=== PATIENT | male | born 1995 | race Caucasian/White ===

== ENCOUNTER 2017-09-16 19:29 | Emergency (ER) | payer OTHER ==
[2017-09-16 19:40] VITALS: BP 153/95
--- NOTE | 2017-09-16 20:24 | ED Physician Documentation ---
PD HPI UPPER EXT INJURY - Stated complaint Stated Complaint: R THUMB INJ - Chief complaint Chief Complaint: Ext Problem - History obtained from History obtained from: Patient - History of Present Illness Location: Right, Finger (thumb) Type of injury: Twist (he was pushing hard with the thumb in hyperextended position and augmented the push with other hand pushing on top of the thumb. He felt an abrupt snap and pain in base of thumb. Pain with swelling.) Where injury occurred: Work Timing - onset: Today (just BRONZER) Timing - details: Abrupt onset, Still present Worsened by: Moving, Palpating Associated symptoms: Swelling. No: Weakness, Numbness Similar symptoms before: Has not had sx before Recently seen: Not recently seen Review of Systems Skin: denies: Abrasion (s), Laceration (s) Neurologic: denies: Focal weakness (but hurts with flex/extension at MCP.), Numbness PD PAST MEDICAL HISTORY - Past Medical History Musculoskeletal: None - Past Surgical History Past Surgical History: No - Present Medications Home Medications: Ambulatory Orders Medication Instructions Recorded Confirmed No Known Home Medications [No 09/16/17 09/16/17 Known Home Medications] - Allergies Allergies/Adverse Reactions: Allergies Allergy/AdvReac Type Severity Reaction Status Date / Time No Known Drug Allergies Allergy Verified 09/16/17 19:36 - Social History Does the pt smoke?: Yes Smoking Status: Current every day smoker Does the pt drink ETOH?: Yes Does the pt have substance abuse?: No - Immunizations Immunizations are current?: Yes - POLST Patient has POLST: No PD ED PE NORMAL - Vitals Vital signs reviewed: Yes - General General: Alert and oriented X 3, No acute distress, Well developed/nourished - Derm Derm: Normal color, Warm and dry - Extremities Extremities: Other (right thumb with swelling and tenderness at MCP radial side. With sightly offset angle appearance of the proximal phalanx at the MCP. ) - Neuro Neuro: No motor deficit, No sensory deficit Results - Vitals Vitals: Vital Signs - 24 hr 09/16/17 19:34 Temperature 36.8 C Heart Rate 91 Respiratory 16 Rate Blood Pressure 153/95 H O2 Saturation 99 Oxygen O2 Source Room air - Rads (name of study) thumb Radiology: Prelim report reviewed (normal), EMP read contemporaneously (slight offset of alignment of proximal phalanx at MCP with focal swelling and tenderness at radial side MCP. ) PD MEDICAL DECISION MAKING - ED course Complexity details: reviewed results (radiology says normal xray, but I think the finger looks off center on xray, suggesting injury to radial collateral ligament. No true dislocation.), considered differential, d/w patient Departure - Departure Disposition: 01 Home, Self Care Clinical Impression: Rupture of radial collateral ligament of thumb Qualifiers: Encounter type: initial encounter Laterality: right Qualified Code(s): S53.21XA - Traumatic rupture of right radial collateral ligament, initial encounter Condition: Stable Record reviewed to determine appropriate education?: Yes Instructions: ED Sprain Finger Follow-Up: SANTIAGO Fernandez [Provider Group] Comments: Tylenol or ibuprofen if needed for pain. Use a thumb splint for the next 3-4 weeks. There are no fractures on her thumb but it does look like it is not sitting exactly aligned and so I presume it for a supporting ligament at the base of the thumb. This commonly will heal up with just splinting. However he should follow-up with your primary care or referral to Orthopedics in about a week to see how its healing, call tomorrow for an appt. Sometimes the ligament ruptures especially of the thumb may need repair because it is such a critical motion. Discharge Date/Time: 09/16/17 21:27
[2017-09-16] MEDS ORDERED: ACETAMINOPHEN 325 MG TABLET PO STA (20:32)
[2017-09-16] MEDS ORDERED: IBUPROFEN 600 MG TABLET PO STA (20:32)
[2017-09-16] MEDS ORDERED: ACETAMINOPHEN 325 MG TABLET PO ONE (20:57)
[2017-09-16] MEDS ORDERED: IBUPROFEN 600 MG TABLET PO ONE (20:58)
--- NOTE | 2017-09-16 21:15 | XRAY Preliminary Report ---
Exam: XR FINGER(S) RT IMPRESSION: Normal digit radiography. [facility] SITE ID: [id number]
--- NOTE | 2017-09-16 21:18 | XRAY Report ---
EXAM: RIGHT FIRST Digit Radiography EXAM DATE: 09/16/2017 08:38 PM. CLINICAL HISTORY: Pop in thumb as was pushing hard with it. COMPARISON: None. TECHNIQUE: 3 views. FINDINGS: Bones: Normal. No fracture or bone lesion. Joints: Normal. No subluxations. Soft Tissues: Normal. No soft tissue swelling. IMPRESSION: Normal digit radiography. [facility] Referring Provider Line: [phone] SITE ID: [id number]
== END 2017-09-16 21:27 | disposition home or self-care (01) ==
LOC: ED 19:29
DX: S53.21XA Traumatic rupture of right radial collateral ligament, initial encounter (principal); X50.1XXA Overexertion from prolonged static or awkward postures, initial encounter; Y99.0 Civilian activity done for income or pay
CPT/HCPCS: 73140; 99283; A9270

== ENCOUNTER 2017-10-14 14:13 | Outpatient (CLI) | payer OTHER ==
--- NOTE | 2017-10-15 13:36 | MRI Report ---
EXAM: RIGHT Thumb MRI Without Contrast EXAM DATE: 10/14/2017 03:08 PM. CLINICAL HISTORY: Sprain of metacarpophalangeal joint of right thumb. COMPARISON: Right thumb radiography from 09/16/2017. TECHNIQUE: Multiplanar, multisequence T1-weighted and fluid-sensitive sequences of the thumb without contrast. Other: None. FINDINGS: Bones: No fractures or subluxations. No marrow edema. No bone lesions. Cartilage: The articular cartilage is unremarkable. Ligaments: The radial and ulnar collateral ligaments are intact. Tendons: The flexor and extensor tendons are unremarkable. The adductor pollicis insertion is normal. Musculature: No edema or fatty atrophy. Other: No joint effusions or capsular rupture. The subcutaneous tissues are unremarkable. Incidentall y, there is a 1.1 x 0.6 x 0.6 cm ganglion dorsal to the capitate bone and volar to the extensor tendo ns of the third and fourth digits. IMPRESSION: 1. Unremarkable MRI of the right thumb and right first metacarpophalangeal joint. 2. A 1.1 x 0.6 x 0.6 cm ganglion dorsal to the capitate and volar to the third and fourth digit exten sor tendons. [facility] MUSCULOSKELETAL RADIOLOGY SECTION Referring Provider Line: [phone] SITE ID: [id number]
== END 2017-10-14 14:14 | disposition home or self-care (01) ==
LOC: DI 14:13
PROVIDERS: ATTEND Orthopaedic Surgery
DX: S63.641A Sprain of metacarpophalangeal joint of right thumb, initial encounter (principal); M67.441 Ganglion, right hand

== ENCOUNTER 2017-11-27 19:01 | Emergency (ER) | payer OTHER ==
[2017-11-27 20:08] LABS: BASOPHILS # (AUTO) 0.1 10^3/uL (0.0-0.1); BASOPHILS % (AUTO) 0.9 %; EOSINOPHILS # (AUTO) 0.2 10^3/uL (0.0-0.7); EOSINOPHILS % (AUTO) 2.6 %; HGB - HEMOGLOBIN 14.7 g/dL (14.0-18.0); LYMPHOCYTES # (AUTO) 2.6 10^3/uL (1.5-3.5); MEAN CORPUSCULAR HEMOGLOBIN 28.8 pg (27.0-31.0); MEAN CORPUSCULAR VOLUME 84.7 fL (80.0-94.0); MEAN PLATELET VOLUME 7.2 fL (7.4-11.4); MONOCYTES # (AUTO) 0.8 10^3/uL (0.0-1.0); MONOCYTES % (AUTO) 9.1 %; NEUTROPHILS # (AUTO) 4.9 10^3/uL (1.5-6.6); NEUTROPHILS % (AUTO) 57.4 %; PLT - PLATELET COUNT 360 10^3/uL (130-450); RED BLOOD COUNT 5.09 10^6/uL (4.70-6.10); RED CELL DISTRIBUTION WIDTH 13.2 % (12.0-15.0); WHITE BLOOD COUNT 8.6 x10^3/uL (4.8-10.8)
[2017-11-27 20:14] LABS: INR 1.1 (0.8-1.2); PT - PROTHROMBIN TIME 12.3 secs (9.9-12.6)
[2017-11-27 20:19] LABS: ALBUMIN 4.8 g/dL (3.2-5.5); ALBUMIN/GLOBULIN RATIO 1.7 (1.0-2.2); BILIRUBIN,TOTAL 0.8 mg/dL (0.2-1.0); CALCIUM 9.5 mg/dL (8.5-10.3); CREATININE 0.7 mg/dL (0.6-1.2); TOTAL PROTEIN 7.6 g/dL (6.7-8.2)
--- NOTE | 2017-11-27 20:45 | ED Physician Documentation ---
PD HPI GI BLEED - Stated complaint Stated Complaint: MALE - Chief complaint Chief Complaint: General - History obtained from History obtained from: Patient - History of Present Illness Timing - onset: Today Timing - duration: Days (1) Timing - details: Gradual onset Pain level max: 0 Pain level now: 0 Associated symptoms: BRBPR, Constipation. No: Vomiting, Black/tarry stool, Diarrhea, Abdominal pain, Chest pain, Fever, Dizzy, Near syncope / syncope, Loss of appetite Contributing factors: No: Aspirin use, NSAID use, Anticoagulated Improved by: Other (nothing) Worsened by: Other (constipation) Similar symptoms before: Has not had sx before Recently seen: Surgery (R thumb surgery, was on narcotic pain medication and became constipated. Then noted BRBPR) Review of Systems Constitutional: denies: Fever, Chills GI: denies: Abdominal Pain, Vomiting, Diarrhea Skin: denies: Rash Musculoskeletal: denies: Neck pain, Back pain Neurologic: denies: Syncope PD PAST MEDICAL HISTORY - Past Medical History Past Medical History: No Musculoskeletal: None - Past Surgical History Past Surgical History: Yes Ortho: Other (R thumb tendon repair) - Present Medications Home Medications: Ambulatory Orders Medication Instructions Recorded Confirmed Polyethylene Glycol 3350 [Miralax] 17 gm PO DAILY PRN #1 bottle 11/27/17 - Allergies Allergies/Adverse Reactions: Allergies Allergy/AdvReac Type Severity Reaction Status Date / Time No Known Drug Allergies Allergy Verified 11/27/17 19:08 - Social History Does the pt smoke?: Yes Smoking Status: Current every day smoker Does the pt drink ETOH?: Yes Does the pt have substance abuse?: No - Immunizations Immunizations are current?: Yes - POLST Patient has POLST: No PD ED PE NORMAL - Vitals Vital signs reviewed: Yes - General General: Alert and oriented X 3, No acute distress, Well developed/nourished - HEENT HEENT: Moist mucous membranes - Neck Neck: Supple, no meningeal sign - Cardiac Cardiac: RRR, Strong equal pulses - Respiratory Respiratory: No respiratory distress, Clear bilaterally - Abdomen Abdomen: Soft, Non tender, Non distended - Male Male : Other (scant bright red blood in rectal vault. no fissures. no external hemorrhoids.) - Derm Derm: Warm and dry, No rash - Neuro Neuro: Alert and oriented X 3 - Psych Psych: Normal mood, Normal affect Results - Vitals Vitals: Vital Signs - 24 hr 11/27/17 11/27/17 19:05 20:55 Temperature 37.4 C 36.4 C L Heart Rate 100 85 Respiratory 18 18 Rate Blood Pressure 142/93 H 132/90 H O2 Saturation 97 97 Oxygen O2 Source Room air - Labs Labs: Laboratory Tests 11/27/17 11/27/17 11/27/17 20:00 20:00 20:00 WBC 8.6 RBC 5.09 Hgb 14.7 Hct 43.1 MCV 84.7 MCH 28.8 MCHC 34.0 RDW 13.2 Plt Count 360 MPV 7.2 L Neut # 4.9 Lymph # 2.6 [place] # 0.8 Eos # 0.2 Baso # 0.1 Absolute Nucleated RBC 0.00 Nucleated RBC % 0.0 PT 12.3 INR 1.1 APTT 28.2 Sodium Potassium Chloride Carbon Dioxide Anion Gap BUN Creatinine Estimated GFR (MDRD) Glucose Calcium Total Bilirubin AST ALT Alkaline Phosphatase Total Protein Albumin Globulin Albumin/Globulin Ratio Lipase Blood Type O POSITIVE Antibody Screen NEGATIVE 11/27/17 20:00 WBC RBC Hgb Hct MCV MCH MCHC RDW Plt Count MPV Neut # Lymph # [place] # Eos # Baso # Absolute Nucleated RBC Nucleated RBC % PT INR APTT Sodium 140 Potassium 3.5 Chloride 103 Carbon Dioxide 27 Anion Gap 10.0 BUN 17 Creatinine 0.7 Estimated GFR (MDRD) 142 Glucose 99 Calcium 9.5 Total Bilirubin 0.8 AST 26 ALT 47 Alkaline Phosphatase 72 Total Protein 7.6 Albumin 4.8 Globulin 2.8 Albumin/Globulin Ratio 1.7 Lipase 13 L Blood Type Antibody Screen PD MEDICAL DECISION MAKING - ED course Complexity details: reviewed results, considered differential, d/w patient ED course: Patient is a 22-year-old male who presents to the emergency department with bright red blood per rectum after being constipated. No apparent fissures. Possible internal hemorrhoids? Normal laboratory testing. Will place on stool softeners for home and have him follow-up with his doctor for repeat evaluation. Patient counseled regarding signs and symptoms for which I believe and urgent re-evaluation would be necessary. Patient with good understanding of and agreement to plan and is comfortable going home at this time This document was made in part using voice recognition software. While efforts are made to proofread this document, sound alike and grammatical errors may occur. Departure - Departure Disposition: 01 Home, Self Care Clinical Impression: Hematochezia Condition: Good Instructions: ED Hematochezia Stable Follow-Up: Dorene Pollock MD [Primary Care Provider] - Within 1 week Prescriptions: Polyethylene Glycol 3350 [Miralax] 17 gm PO DAILY PRN #1 bottle PRN Reason: Constipation Comments: Return if you worsen. This should improve over the next 24 hours or so. It is likely related to internal hemorrhoids. Your labs are normal today Discharge Date/Time: 11/27/17 21:04
[2017-11-27 20:56] VITALS: BP 132/90
== END 2017-11-27 21:04 | disposition home or self-care (01) ==
LOC: ED 19:01
DX: K92.1 Melena (principal); F17.200 Nicotine dependence, unspecified, uncomplicated
CPT/HCPCS: 36415; 80053; 83690; 85025; 85610; 85730; 86850; 86900; 86901; 99283

== ENCOUNTER 2020-03-24 20:17 | Emergency (ER) | payer OTHER ==
--- NOTE | 2020-03-24 20:40 | ED Physician Documentation ---
PD HPI UPPER EXT INJURY - Stated complaint Stated Complaint: LT HAND INJURY - Chief complaint Chief Complaint: Trauma Ext - History obtained from History obtained from: Patient - History of Present Illness Location: Left, Hand Type of injury: Fall Where injury occurred: Work ([employer]) Timing - onset: Today Timing - duration: Hours (2) Timing - details: Abrupt onset Pain level max: 5 Pain level now: 3 Improved by: Rest Worsened by: Moving, Palpating Associated symptoms: No: Weakness, Numbness, Tingling, Swelling Recently seen: Not recently seen - Additonal information Additional information: 24-year-old male, right-handed presents the emergency department after falling on a plastic a grate while working today at the [employer]. He states that he has pain at the base of the left thumb. Worse with movement and better with rest Review of Systems Constitutional: denies: Fever, Chills Throat: denies: Sore throat Cardiac: denies: Chest pain / pressure : denies: Dysuria Skin: denies: Rash Musculoskeletal: denies: Neck pain, Back pain Neurologic: denies: Headache PD PAST MEDICAL HISTORY - Past Medical History Past Medical History: No Musculoskeletal: None - Past Surgical History Past Surgical History: Yes Ortho: Other - Allergies Allergies/Adverse Reactions: Allergies Allergy/AdvReac Type Severity Reaction Status Date / Time No Known Drug Allergies Allergy Verified 03/24/20 20:28 - Social History Does the pt smoke?: Yes Smoking Status: Current every day smoker Does the pt drink ETOH?: Yes Does the pt have substance abuse?: No - Immunizations Immunizations are current?: Yes - POLST Patient has POLST: No PD ED PE NORMAL - Vitals Vital signs reviewed: Yes - General General: Alert and oriented X 3, No acute distress - HEENT HEENT: Moist mucous membranes - Neck Neck: Supple, no meningeal sign - Derm Derm: Warm and dry - Extremities Extremities: Other (Abrasions to the palm of the left hand. Tender to palpation over the thenar eminence. No deformity. Neurovascular intact. No snuffbox tenderness. No tenderness over the distal radius or ulna.) - Neuro Neuro: Alert and oriented X 3 - Psych Psych: Normal mood, Normal affect Results - Vitals Vitals: Vital Signs - 24 hr 03/24/20 03/24/20 20:20 21:22 Temperature 37.2 C 37.5 C Heart Rate 77 60 Respiratory 14 18 Rate Blood Pressure 145/84 H 135/72 H O2 Saturation 96 100 Oxygen O2 Source Room air - Rads (name of study) Left hand x-ray Radiology: Prelim report reviewed, EMP read contemporaneously, See rad report (No acute abnormality) PD MEDICAL DECISION MAKING - ED course Complexity details: reviewed results, re-evaluated patient, considered differential, d/w patient ED course: No acute findings on x-ray. Placed in a Velcro thumb spica for comfort. Patient counseled regarding signs and symptoms for which I believe and urgent re-evaluation would be necessary. Patient with good understanding of and agreement to plan and is comfortable going home at this time This document was made in part using voice recognition software. While efforts are made to proofread this document, sound alike and grammatical errors may occur. Departure - Departure Disposition: 01 Home, Self Care Clinical Impression: Hand contusion Qualifiers: Encounter type: initial encounter Laterality: left Qualified Code(s): S60.222A - Contusion of left hand, initial encounter Condition: Good Instructions: ED Contusion Hand Follow-Up: CHERRIE DOWNS MD [Primary Care Provider] - Within 1 week Comments: Follow-up with your doctor for further care. Return if you worsen. Your x-ray does not show any acute abnormalities tonight. Discharge Date/Time: 03/24/20 21:23
--- NOTE | 2020-03-24 21:10 | XRAY Report ---
PROCEDURE: Hand 3 View LT INDICATIONS: L hand pain s/p fall TECHNIQUE: 3 views of the hand(s) acquired. COMPARISON: None FINDINGS: Bones: No fractures or dislocations. No suspicious bony lesions. Soft tissues: No suspicious soft tissue calcifications. IMPRESSION: No acute radiographic findings. If pain persists, consider repeat imaging in 5-7 days to exclude occu lt fracture. Reviewed by: Taylor Fung MD on 03/24/2020 9:09 PM PDT Approved by: Taylor Fung MD on 03/24/2020 9:09 PM PDT Station ID: [id number]
[2020-03-24 21:23] VITALS: BP 135/72
== END 2020-03-24 21:23 | disposition home or self-care (01) ==
LOC: ED 20:17
DX: S60.222A Contusion of left hand, initial encounter (principal); S60.512A Abrasion of left hand, initial encounter; W18.30XA Fall on same level, unspecified, initial encounter; W22.8XXA Striking against or struck by other objects, initial encounter; Y99.0 Civilian activity done for income or pay; Y92.139 Unspecified place military base as the place of occurrence of the external cause; F17.200 Nicotine dependence, unspecified, uncomplicated
CPT/HCPCS: 99282; 99283

== ENCOUNTER 2020-10-02 21:25 | Emergency (ER) | payer OTHER ==
[2020-10-02] MEDS ORDERED: SODIUM CHLORIDE 0.9% 1,000 ML IV STA (21:42)
[2020-10-02] MEDS ORDERED: IBUPROFEN 600 MG TABLET PO STA (21:42)
[2020-10-02] MEDS ORDERED: PROCHLORPERAZINE 10 MG/2 ML VIAL IVP STA (21:43)
--- NOTE | 2020-10-02 21:46 | ED Physician Documentation ---
History of Present Illness - Stated complaint Stated Complaint: HEAD INJ - History obtained from History obtained from: Patient - History of Present Illness Timing: Yesterday - Additonal information Additional information: 25-year-old male presents the emergency department with chief complaint of headache and dizziness and nausea. He reports that he was snowboarding yesterday and face planted into hard compact snow. He had no loss of consciousness but has had a persistent headache since. no vomiting. no abdominal, neck or back pain. Lights are especially bothersome. Denies any other injuries associated with this accident. pt is most concerned he may have a concussion. reports a hx of concussion about a year ago as well Review of Systems Constitutional: denies: Fever, Chills Eyes: reports: Photophobia Ears: reports: Reviewed and negative Nose: reports: Reviewed and negative Throat: reports: Reviewed and negative Cardiac: reports: Reviewed and negative Respiratory: reports: Reviewed and negative GI: reports: Reviewed and negative : reports: Reviewed and negative Skin: reports: Reviewed and negative Musculoskeletal: denies: Neck pain, Back pain, Extremity pain Neurologic: reports: Headache, Head injury. denies: Generalized weakness, Focal weakness, Numbness, Difficulty speaking, Near syncope, Syncope, Seizure, Confused, Altered mental status, LOC PD PAST MEDICAL HISTORY - Past Medical History Musculoskeletal: None - Past Surgical History Past Surgical History: Yes Ortho: Other - Present Medications Home Medications: Ambulatory Orders Medication Instructions Recorded Confirmed Ibuprofen [Motrin] 600 mg PO Q6H PRN #30 tab 10/02/20 - Allergies Allergies/Adverse Reactions: Allergies Allergy/AdvReac Type Severity Reaction Status Date / Time No Known Drug Allergies Allergy Verified 03/24/20 20:28 - Social History Does the pt smoke?: Yes Smoking Status: Current every day smoker Does the pt drink ETOH?: Yes Does the pt have substance abuse?: No - Immunizations Immunizations are current?: Yes - POLST Patient has POLST: No PD ED PE EXPANDED - General General: Alert, No acute distress, Well developed/nourished - Eyes Eyes: PERRL, Normal accommodation - Neck Neck: Supple w/out meningeal sx, No tenderness. No: Soft tissue TTP, Bony TTP - Cardiac Cardiac: Regular Rate, Regular Rhythm, Radial strong equal, Pedal strong equal, Cap refill < 2 sec. No: Murmur Present - Respiratory Respiratory: Clear to ausultation mary. No: Distress, Labored - Abdomen Abdomen: Normal Bowel sounds. No: Tender to palpation - Extremities Extremities: Normal. No: Deformity, Tenderness - Neuro Neuro: Alert and Oriented X 3, CNII-XII intact, Cerebellar nl, Normal gait, Normal finger nose, Normal speech. No: Nystagmus - GCS Eye Opening: Spontaneous Motor: Obeys Commands Verbal: Oriented Total: 15 Results - Vitals Vitals: Vital Signs - 24 hr 10/02/20 21:30 Temperature 37.2 C Heart Rate 78 Respiratory 18 Rate Blood Pressure 141/100 H O2 Saturation 98 Oxygen O2 Source Room air - Rads (name of study) CT head Radiology: Final report received (No acute intracranial findings) PD MEDICAL DECISION MAKING - ED course Complexity details: reviewed results, re-evaluated patient, considered differential ED course: 25-year-old male presents to the emergency department with worsening headache dizziness nausea and light since face planted into hard compact snow. He has no focal neuro deficits normal cerebellar exam. He has taken ibuprofen without relief of the pain today. Head CT does not show any acute intracranial process. Headache began to improve following Compazine fluids here in the emergency department as well as Toradol. History and exam is most consistent with a postconcussive syndrome. I have advised that this gentleman drink lots of fluids and get plenty of rest. I prescribed ibuprofen for pain. I advised him to follow-up closely with [facility]. Emergent and worrisome return precautions were discussed Departure - Departure Disposition: 01 Home, Self Care Clinical Impression: Concussion Qualifiers: Encounter type: initial encounter Loss of consciousness presence/duration: with out LOC Qualified Code(s): S06.0X0A - Concussion without loss of consciousness, initial encounter Condition: Stable Record reviewed to determine appropriate education?: Yes Instructions: Brain Injury Mild Traum Concuss Tx Prescriptions: Ibuprofen [Motrin] 600 mg PO Q6H PRN #30 tab PRN Reason: Pain Comments: I hope that you are feeling better soon. The headache nausea light sensitivity and dizziness are all symptoms of a concussion. Your head CT is normal. It is important that you drink lots of fluids and get plenty of rest. The brain does not heal unless it is allowed to rest. Please avoid videogame playing TV watching computer screen or excessive computer use. Most concussions will resolve with conservative measures over the initial 1 to 2 weeks. If your headaches are worsening despite ibuprofen or Tylenol, you have uncontrolled vomiting fevers or slurred speech please return immediately to the ER. Please discuss this ED visit with [facility] as soon as possible.
[2020-10-02] MEDS ORDERED: KETOROLAC 30 MG/ML VIAL IVP STA (22:18)
[2020-10-02 22:24] VITALS: BP 132/84
--- NOTE | 2020-10-03 08:40 | CT Report ---
PROCEDURE: HEAD WO INDICATIONS: headache after fall while snowboarding TECHNIQUE: Noncontrast 4.5 mm thick angled axial sections acquired from the foramen magnum to the vertex. For r adiation dose reduction, the following was used: automated exposure control, adjustment of mA and/or kV according to patient size. COMPARISON: None. FINDINGS: Image quality: Excellent. CSF spaces: Basal cisterns are patent. No extra-axial fluid collections. Ventricles are normal in size and shape. Brain: No midline shift. No intracranial masses or hemorrhage. Hurley-white matter interface is norm al. Skull and face: Calvarium and visualized facial bones are intact, without suspicious lesions. Sinuses: Visualized sinuses and mastoids are clear. IMPRESSION: No acute intracranial process. Findings are concordant with the preliminary study interpretation provided at the time of the study. Reviewed by: Yogesh Alamo MD on 10/03/2020 8:39 AM PST Approved by: Yogesh Alamo MD on 10/03/2020 8:39 AM [facility] Station ID: [id number]
== END 2020-10-02 22:34 | disposition home or self-care (01) ==
LOC: ED 21:25
DX: S06.0X0A Concussion without loss of consciousness, initial encounter (principal); V00.311A Fall from snowboard, initial encounter; Y93.23 Activity, snow (alpine) (downhill) skiing, snowboarding, sledding, tobogganing and snow tubing; F17.200 Nicotine dependence, unspecified, uncomplicated
CPT/HCPCS: 70450; 96374; 96375; 99284

== ENCOUNTER 2021-03-26 14:27 | Emergency (ER) | payer OTHER ==
[2021-03-26] MEDS ORDERED: KETOROLAC 30 MG/ML VIAL IM STA (15:52)
--- NOTE | 2021-03-26 15:53 | XRAY Report ---
PROCEDURE: Finger(s) RT INDICATIONS: thumb pain, no injury TECHNIQUE: AP hand, 2 views of the right thumb acquired. COMPARISON: None FINDINGS: Bones: There are benign-appearing lucent lesions of the distal aspect of the thumb metacarpal and bas e of the proximal phalanx of the thumb. There is a possible nondisplaced crack through the distal asp ect of the thumb metacarpal, in the area with the lucent lesion. Suggest clinical correlation for poi nt tenderness No suspicious bony lesions. Soft tissues: No suspicious soft tissue calcifications. IMPRESSION: 1. There are benign-appearing lucent lesions of the distal diametaphyseal region of the thumb metacar pal, as well as the base of the thumb proximal phalanx. 2. Possible nondisplaced crack through the lucent lesion of the thumb metacarpal. Recommend correlati on with physical exam for the presence or absence of point tenderness Reviewed by: Saman Peace MD on 03/26/2021 2:52 PM [facility] Approved by: aSman Peace MD on 03/26/2021 2:52 PM [facility] Station ID: [id number]
[2021-03-26 16:01] VITALS: BP 142/87
--- NOTE | 2021-03-26 16:01 | ED Physician Documentation ---
History of Present Illness - Stated complaint Stated Complaint: R THUMB PX - Chief complaint Chief Complaint: Ext Problem - History obtained from History obtained from: Patient - Additonal information Additional information: 25-year-old man with past Medical history of right first MCP fracture, [id number], with surgery performed a few years ago in [place], presents with right hand pain spontaneously occurring 4 days ago, gradual in onset and progressively worsening associated with sensation of swelling but no objective swelling or redness. no known injury Review of Systems Constitutional: denies: Fever Skin: denies: Lesions, Abrasion (s), Laceration (s) Musculoskeletal: reports: Extremity pain Neurologic: denies: Focal weakness, Numbness PD PAST MEDICAL HISTORY - Past Medical History Neuro: Other Musculoskeletal: None - Past Surgical History Past Surgical History: Yes Ortho: Other - Present Medications Home Medications: Ambulatory Orders Medication Instructions Recorded Confirmed Ibuprofen [Motrin] 600 mg PO Q6H PRN #30 tab 10/02/20 - Allergies Allergies/Adverse Reactions: Allergies Allergy/AdvReac Type Severity Reaction Status Date / Time No Known Drug Allergies Allergy Verified 03/26/21 14:53 - Social History Does the pt smoke?: Yes Smoking Status: Current every day smoker Does the pt drink ETOH?: Yes Does the pt have substance abuse?: No - Immunizations Immunizations are current?: Yes - POLST Patient has POLST: No PD ED PE NORMAL - Vitals Vital signs reviewed: Yes - General General: Alert and oriented X 3, No acute distress, Well developed/nourished - HEENT HEENT: Atraumatic, PERRL, EOMI - Derm Derm: Normal color, Warm and dry, No rash, Other (No erythema, no swelling) - Extremities Extremities: Other (Right thenar eminence tender to palpation. 2+ radial pulse bilaterally. Right hand tender with opposition of the thumb and forefinger and thumb and fifth finger. Normal strength and movement. Normal sensation.Normal capillary refill) Results - Vitals Vitals: Vital Signs - 24 hr 03/26/21 14:50 Temperature 36.5 C Heart Rate 81 Respiratory 16 Rate Blood Pressure 138/87 H O2 Saturation 98 Oxygen O2 Source Room air PD MEDICAL DECISION MAKING - ED course ED course: 25-year-old man presented with right hand pain without any precipitating factor. X-ray shows only the old fracture but no other acute findings. Conservative measures discussed and recommended to follow-up with his hand surgeon in [place]. Strict return precautions given. Departure - Departure Disposition: 01 Home, Self Care Clinical Impression: Thumb pain Condition: Stable Instructions: ED MICHAELA Comments: You are seen in the emergency department for evaluation of right thumb pain. You do not have a break in the bone or any effusion (meaning fluid collection) on x-ray. You should be evaluated by hand surgeon, preferably the one that did your surgery a few years ago. Return to the emergency department if you have any new or worsening symptoms or other concerns especially if you have severe pain and hardening of the compartment of the hand. [facility] Orthopedist, Surgeon [id number] [place] [address] Zahida
== END 2021-03-26 16:02 | disposition home or self-care (01) ==
LOC: ED 14:27
DX: M79.644 Pain in right finger(s) (principal); M79.641 Pain in right hand; Z87.81 Personal history of (healed) traumatic fracture; F17.200 Nicotine dependence, unspecified, uncomplicated
CPT/HCPCS: 99282; 99283

== ENCOUNTER 2023-01-30 23:40 | Emergency (ER) | payer OTHER ==
[2023-01-31] MEDS: DEXAMETHASONE 10 MG/ML VIAL IV STA (00:08)
[2023-01-31] MEDS: FAMOTIDINE 20 MG/2 ML VIAL IVP STA (00:10)
[2023-01-31] MEDS: EPINEPHrine 1 MG/ML AMP IM STA (00:14)
--- NOTE | 2023-01-31 00:18 | ED Physician Documentation ---
History of Present Illness - Stated complaint Stated Complaint: SOA - Chief complaint Chief Complaint: General - History obtained from History obtained from: Patient - Additonal information Additional information: The patient comes to the emergency department chief complaint of upper and lower lip swelling after exposure to barbecue sauce. He states he has never had a problem with barbecue sauce before until about a week ago when he had ribs. He states he broke out in some hives and noticed a little tingling in his lips. He states that he went on Benadryl and it took about 3 days before the reaction completely subsided. The patient states that he was not entirely sure what had caused the reaction because he never had 1 before. However, the patient states that today he ate a hot dog with both ketchup and barbecue sauce on it and that within the hour, he noticed that his upper and lower lip were starting to swell up. He states that this started a couple of hours ago and that since then, he has noticed a slow progression into his cheeks. He will cyst feels as though the lymph nodes in his neck are swollen, he states. He is not having any trouble breathing or swallowing. This time, he states he does not have any skin manifestations like hives or itching. He denies any shortness of breath or nausea. No lightheadedness. He has never had a reaction like this before, though he does state he has hayfever type allergies to dust and pollen. He no other complaints at this time. He does note that he took some Benadryl about an hour ago and did not really seem to help. PD PAST MEDICAL HISTORY - Past Medical History Past Medical History: Yes Cardiovascular: None Respiratory: None Neuro: Other Endocrine/Autoimmune: None GI: None : None HEENT: None Psych: None Musculoskeletal: None Derm: None - Past Surgical History Past Surgical History: Yes Ortho: Other - Present Medications Home Medications: Ambulatory Orders Medication Instructions Recorded Confirmed EPINEPHrine [Epinephrine] 0.3 mg IJ ONCE PRN #1 each 01/31/23 predniSONE [Deltasone] 60 mg PO DAILY 3 Days #9 tablet 01/31/23 - Allergies Allergies/Adverse Reactions: Allergies Allergy/AdvReac Type Severity Reaction Status Date / Time No Known Drug Allergies Allergy Verified 01/30/23 23:51 - Social History Does the pt smoke?: Yes Smoking Status: Current every day smoker Does the pt drink ETOH?: Yes Does the pt have substance abuse?: No - Immunizations Immunizations are current?: Yes - POLST Patient has POLST: No PD ED PE NORMAL - Vitals Vital signs reviewed: Yes - General General: Alert and oriented X 3, No acute distress, Well developed/nourished - HEENT HEENT: Atraumatic, PERRL, EOMI, Moist mucous membranes, Other (Moderate angioedema that is confined to the patient's upper and lower lip. No tongue swelling. No obvious edema of the uvula or other pharyngeal structures. No obvious facial edema other than lips.) - Neck Neck: Supple, no meningeal sign, No adenopathy - Cardiac Cardiac: RRR, No murmur, Strong equal pulses - Respiratory Respiratory: No respiratory distress, Clear bilaterally, Other (No stridor. No wheezing.) - Abdomen Abdomen: Soft, Non distended - Derm Derm: Normal color, Warm and dry, No rash - Extremities Extremities: No deformity - Neuro Neuro: Alert and oriented X 3, Other (Grossly intact.) - Psych Psych: Normal mood, Normal affect Results - Vitals Vitals: Vital Signs - 24 hr 01/30/23 01/30/23 01/31/23 23:48 23:51 00:17 Temperature 36.7 C Heart Rate 67 64 Respiratory 17 17 16 Rate Blood Pressure 149/94 H O2 Saturation 99 100 01/31/23 02:00 Temperature 36.5 C Heart Rate 67 Respiratory 16 Rate Blood Pressure 113/67 O2 Saturation 97 Oxygen O2 Source Room air PD Medical Decision Making - ED course Complexity details: considered differential, d/w patient ED course: The patient was treated with IV doses of Decadron and Pepcid, and IM epinephrine. He was observed in the emergency department for nearly 3 hours and was found to be improving. I have prescribed the patient an EpiPen as well as a course of steroids and have also advised him to take [id number] Pepcid and the Benadryl that he has at home until he is certain the symptoms are not returning. The patient is advised to avoid anything with barbecue sauce on it and to follow-up with an chief wheelage clerk for further delineation of his allergies. I have advised him to carry the EpiPen with him anywhere he thinks he may be exposed to something he is allergic to. We have discussed the usual indications for return. Departure - Departure Disposition: 01 Home, Self Care Clinical Impression: Allergic reaction Qualifiers: Encounter type: initial encounter Qualified Code(s): T78.40XA - Allergy, unspecified, initial encounter Condition: Stable Instructions: ED Allergic React Food Prescriptions: predniSONE [Deltasone] 60 mg PO DAILY 3 Days #9 tablet EPINEPHrine [Epinephrine] 0.3 mg IJ ONCE PRN #1 each PRN Reason: Anaphylaxis Comments: Given that you have had a reaction with some form or another of allergic symptoms after the last 2 consecutive times you have been exposed to barbecue sauce, it is very possible that you are allergic to this now. As such, it is highly advisable that you avoid barbecue sauce, especially given your reaction this time involved swelling of some of your oropharyngeal structures. Tonight, you have been given doses of steroid and epinephrine, as well as another medication that also helps act against allergic reactions. This medication, Pepcid, is commonly known as an antacid for the stomach, but the receptor that it blocks receives the chemical component that is operative in allergic reactions. As such, we usually give it as one of the antiallergic reaction medications. As a reaction to something that you have taken into your body can last for a few days, Prescriptions for the epinephrine and steroid for the next few days have been electronically transmitted to the [facility] in [place]. You should also take Benadryl along with these medications. It is also helpful to take Pepcid, which you may get [id number] and either is brand name or generic form. If you have any further concerns regarding the possibility of allergies, you may ask your primary doctor to refer you to an nursing specialist, who can help sort out exactly what it is you are allergic to, just in case there is a barbecue sauce that does not contain the ingredient that you would like to use for now on. If you find yourself reacting again with even worse swelling of the structures of your mouth and throat, you may use the EpiPen to arrest the reaction and prevent your airway from being blocked. It is helpful to carry this with you anywhere you think you may be exposed potentially to something to which you are allergic. Forms: Activity restrictions Discharge Date/Time: 01/31/23 02:35
[2023-01-31 02:19] VITALS: BP 113/67
== END 2023-01-31 02:35 | disposition home or self-care (01) ==
LOC: ED 23:40
DX: T78.40XA Allergy, unspecified, initial encounter (principal); F17.200 Nicotine dependence, unspecified, uncomplicated
CPT/HCPCS: 96374; 96375; 99283

== ENCOUNTER 2023-05-12 23:48 | Emergency (ER) | payer OTHER ==
--- NOTE | 2023-05-12 23:54 | ED Physician Documentation ---
History of Present Illness - Stated complaint Stated Complaint: ALLERGIC REACTION - Chief complaint Chief Complaint: Allergic Rx - History obtained from History obtained from: Patient - Additonal information Additional information: HPI from patient. At approximately 10 PM tonight, patient developed body wide, pruritic hives and upper lip swelling. He has had similar symptoms before associated with/ attributed to allergic reaction. Unlike previous episodes, however, he also developed difficulty breathing with the other symptoms. He also describes sensation of chest pain/tightness across anterior chest, also a new symptom for him. There was no definitive/confident inciting event/exposure. Patient took a dose of prescribed cetirizine, fexofenadine, and montelukast shortly before coming to the emergency department tonight. He notes that the hives have improved significantly. The lip swelling and dyspnea persist. Review of Systems Throat: reports: Other (no sensation of throat/tongue swelling or constriction) Cardiac: reports: Chest pain / pressure Respiratory: reports: Dyspnea. denies: Cough, Wheezing GI: denies: Abdominal Pain Skin: reports: Rash PD PAST MEDICAL HISTORY - Past Medical History Cardiovascular: None Respiratory: None Neuro: Other Endocrine/Autoimmune: None GI: None : None HEENT: None Psych: None Musculoskeletal: None Derm: None - Past Surgical History Past Surgical History: Yes Ortho: Other - Present Medications Home Medications: Ambulatory Orders Medication Instructions Recorded Confirmed EPINEPHrine [Epinephrine] 0.3 mg IJ ONCE PRN #1 each 01/31/23 05/13/23 Cetirizine [ZyrTEC] 10 mg PO DAILY 05/13/23 05/13/23 Fexofenadine HCl 180 mg PO DAILY 05/13/23 05/13/23 Montelukast [Singulair] 10 mg PO QPM 05/13/23 05/13/23 predniSONE [Deltasone] 40 mg PO DAILY 4 Days #8 tablet 05/13/23 - Allergies Allergies/Adverse Reactions: Allergies Allergy/AdvReac Type Severity Reaction Status Date / Time No Known Drug Allergies Allergy Verified 05/12/23 23:51 - Social History Does the pt smoke?: Yes Smoking Status: Current every day smoker Does the pt drink ETOH?: Yes Does the pt have substance abuse?: No - Immunizations Immunizations are current?: Yes - POLST Patient has POLST: No PD ED PE NORMAL - Vitals Vital signs reviewed: Yes - General General: Alert and oriented X 3, No acute distress, Well developed/nourished - HEENT HEENT: Moist mucous membranes, Pharynx benign (no intraoral swelling, airway is widely patent), Other (subtle swelling of upper lip) - Cardiac Cardiac: RRR, No murmur - Respiratory Respiratory: No respiratory distress, Clear bilaterally - Derm Derm: Other (few faint hives on left flank) Results - Vitals Vitals: Oxygen O2 Source Room air - EKG (time done) No standard instances EKG releavant findings:: EKG personally interpreted by author of this note. Relevant findings are: Rate: Rate (enter#) (77) Rhythm: NSR Webb: Normal Intervals: Normal IN QRS: Normal Ischemia: Normal ST segments PD Medical Decision Making - ED course Complexity details: considered differential, d/w patient ED course: Patient already has taken Antihistamines (cetirizine and fexofenadine) as well as montelukast prior to arrival. He has had improvement regarding the hives. He is given 60mg PO prednisone and observed in ED for an hour. On reevaluation, he appears about the same to me on exam, although he says he feels the lip swelling has subtly improved from his standpoint. That he is not worsening, has taken appropriate medications (antihistamines), and effect of prednisone likely to gradually have increasing beneficial effect, it is safe and appropriate to d/c at this time, and patient is in agreement with this (offered to continue to observe in ED if he was more comfortable with this). No abnormalities on EKG. Lungs clear and NAD including no respiratory distress during ED stay. He says he has epi-pens at home which are not . I am e- prescribing short course of daily prednisone for him. Departure - Departure Disposition: 01 Home, Self Care Clinical Impression: Allergic reaction Qualifiers: Encounter type: initial encounter Qualified Code(s): T78.40XA - Allergy, unspecified, initial encounter Condition: Good Instructions: ED Allergic Reaction General Other Prescriptions: predniSONE [Deltasone] 40 mg PO DAILY 4 Days #8 tablet Comments: A prescription for daily steroid (prednisone) for 4 days has been electronically submitted to the [facility] pharmacy in [place]. In addition to the steroid, you can continue to take the other medications previously prescribed for allergic reaction as per those labels instructions. Forms: PCP List Discharge Date/Time: 05/13/23 01:06
[2023-05-13] MEDS ORDERED: predniSONE 20 MG TABLET PO STA (00:20)
[2023-05-13 01:10] VITALS: BP 122/79; O2SAT 98
== END 2023-05-13 01:06 | disposition home or self-care (01) ==
LOC: ED 23:48
DX: T78.40XA Allergy, unspecified, initial encounter (principal); X58.XXXA Exposure to other specified factors, initial encounter; F17.200 Nicotine dependence, unspecified, uncomplicated; Z79.899 Other long term (current) drug therapy
CPT/HCPCS: 93005; 99283; 99284; J7512